=== PATIENT | male | born 1990 | race Caucasian/White ===

== ENCOUNTER 2018-04-23 09:55 | Inpatient (IN) | payer SELFPAY ==
[~2018-04-23] VITALS: Ht 193 cm; Wt 118.4 kg
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
--- OUTSIDE RECORDS SUMMARY | 2018-04-23 10:12 | XMS REPORT ---
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 [id number] ALLERGIES No Information ENCOUNTERS Encounter Location Date Diagnosis [facility] [address] [address] Sep, Positive QuantiFERON-TB Gold test R76.12 [facility] [address] [address] Aug, Cough R05 ; Acute maxillary sinusitis, recurrence not specified J01.00 and Impacted cerumen of both ears H61.23 [facility] [address] [address] Jul, Positive QuantiFERON-TB Gold test R76.12 [facility] [address] [address] Jul, Positive QuantiFERON-TB Gold test R76.12 [facility] [address] [address] June, [facility] [address] [address] May, Lumbar back pain M54.5 [facility] [address] [address] May, Positive QuantiFERON-TB Gold test R76.12 [facility] [address] [id number] May, Encounter for dental exam and cleaning w/o abnormal findings Z01.20 [facility] [address], [place] [address] Apr, Positive QuantiFERON-TB Gold test R76.12 [facility] [address], [place] [address] Apr, Positive QuantiFERON-TB Gold test R76.12 [facility] [address] [place] [address]- 8680 Feb, Positive QuantiFERON-TB Gold test R76.12 [facility] [address] [place] [address]- [address] Feb, [facility] [address] [place] [address] 8[address]- 1577 Feb, [facility] [address] [place] [address]- [address]56 Feb, Latent tuberculosis R76.11 [facility] [address], [place] [address] Feb, [facility] [address] [place] [address]94- 0900 Dec, Positive QuantiFERON-TB Gold test R76.12 [facility] [address], [place] [address] Dec, Positive QuantiFERON-TB Gold test R76.12 [facility] [address] [id number], [place] [address] Dec, Positive QuantiFERON-TB Gold test R76.12 [facility] [address], [place] [address] 18 Nov, 2016 Latent tuberculosis R76.11 and Acute midline low back pain without sciatica M54.5 [facility] [address] [place] [id number] Jan, Enlarged lymph node R59.9 [facility] [address] [id number] [place] [id number] Oct, Dental examination V72.2 [facility] [address] [facility] [id number], [place] [address] May, [facility] [address] [facility] [id number], [place] [address] May, [facility] [address] [place] [address] May, [facility] [address] [place] [id number] Feb, [facility] [address] [facility] [id number], [place] [address]- 1639 May, [facility] [address] [facility] [id number], [place] [address]- 8[address] May, [facility] [address] [facility] [id number], [place] [address]- [address] Dec, IMMUNIZATIONS No Known Immunizations SOCIAL HISTORY Never Assessed REASON FOR VISIT tb treatment- INH given for 30 day supply reminded pt to come back in 30 days, voiced uday Grider RN PLAN OF CARE VITAL SIGNS [...]
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
--- OUTSIDE RECORDS SUMMARY | 2018-04-23 10:13 | XMS REPORT ---
Author Author NEHEMIAS PIZARRO [facility] Address [address] [place] [address] Care Team Providers Care Burn Nurse Name Role Phone NEHEMIAS PIZARRO Unavailable PROBLEMS Type Condition ICD9-CM Code CTK95-HI Code Onset Dates Condition Status SNOMED Code Problem Ingrowing nail 703.0 Active 777237364 Problem Urinary tract infection, site not specified 599.0 Active 86263130 ALLERGIES Unknown Allergies SOCIAL HISTORY No smoking Hx information available PLAN OF CARE VITAL SIGNS Height 75 in 2016-01-27 Weight 227 lbs 2016-01-27 Heart Rate 80 bpm 2016-01-27 Respiratory Rate 16 2016-01-27 BMI 28.37 kg/m2 2016-01-27 Blood pressure systolic 118 mmHg 2016-01-27 Blood pressure diastolic 80 mmHg 2016-01-27 MEDICATIONS Medication Instructions Dosage Frequency Start Date End Date Duration Status Augmentin 875-125 MG Orally every 12 hrs 1 tablet 12h Jan,Jan 10 day(s) Active RESULTS No Results PROCEDURES Procedure Date Ordered Related Diagnosis Body Site Office Visit, Est Pt., Level 2 Jan 27, 2016 IMMUNIZATIONS No Known Immunizations
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
--- OUTSIDE RECORDS SUMMARY | 2018-04-23 10:13 | XMS REPORT | Continuity of Care Document ---
Demographics Preferred Language Unknown Marital Status Unknown Denominational Affiliation Unknown Race Unknown Ethnic Group Unknown Author Author [facility] Address Unknown Phone Unavailable Allergies Active Description Code Type Severity Reaction Onset Reported/Identified Relationship to Patient Clinical Status Yes No Known Drug Allergies [id number] Drug Allergy Unknown N/A 09/09/2012 Medications There is no data. Problems Date Dx Coded Attending Type Code Diagnosis Diagnosed By 12/16/2008 V70.4 EXAMINATION FOR MEDICOLEGAL REASONS 12/16/2008 V70.4 EXAMINATION FOR MEDICOLEGAL REASONS 05/21/2009 463 ACUTE TONSILLITIS 05/21/2009 463 ACUTE TONSILLITIS 02/28/2010 V74.5 visit for: screening exam bact/spirochetal venereal disease 02/28/2010 V74.5 visit for: screening exam bact/spirochetal venereal disease 03/07/2012 599.0 URINARY TRACT INFECTION 03/07/2012 599.0 URINARY TRACT INFECTION 05/09/2012 703.0 NAIL INGROWN 09/09/2012 FITO MILLER, JEFF [place] Ot 874.8 OPEN WOUND OF NECK NEC 09/09/2012 FITO MILLER, JEFF A Ot E000.8 OTHER EXTERNAL CAUSE STATUS 09/09/2012 IFTO MILLER, JEFF A Ot E849.[address]/HIGHWAY 09/09/2012 FITO MILLER, JEFF A Ot E920.8 ACC-CUTTING INSTRUM NEC 09/09/2012 FITO MILLER, JEFF A Ot V06.1 [id number], COMBINED [ Procedures There is no data. Results Test Result Range LIVER PANEL (LFT) - 12/17/16 09:36 PROTEIN, TOTAL 7.3 g/dL 6.1-8.1 ALBUMIN 4.9 g/dL 3.6-5.1 GLOBULIN 2.4 g/dL (calc) 1.9-3.7 ALBUMIN/GLOBULIN RATIO 2.0 (calc) 1.0-2.5 BILIRUBIN, TOTAL 0.7 mg/dL 0.2-1.2 ALKALINE PHOSPHATASE 81 U/L 40-115 AST 47 U/L 10-40 ALT 71 U/L 9-46 BILIRUBIN, DIRECT 0.1 mg/dL < OR=0.2 BILIRUBIN, INDIRECT 0.6 mg/dL (calc) 0.2-1.2 LIVER PANEL (LFT) - 04/14/17 17:27 PROTEIN, TOTAL 7.3 g/dL 6.1-8.1 ALBUMIN 4.9 g/dL 3.6-5.1 GLOBULIN 2.4 g/dL (calc) 1.9-3.7 ALBUMIN/GLOBULIN RATIO 2.0 (calc) 1.0-2.5 BILIRUBIN, TOTAL 0.5 mg/dL 0.2-1.2 ALKALINE PHOSPHATASE 76 U/L 40-115 AST 34 U/L 10-40 ALT 59 U/L 9-46 BILIRUBIN, DIRECT 0.1 mg/dL < OR=0.2 BILIRUBIN, INDIRECT 0.4 mg/dL (calc) 0.2-1.2 LIVER PANEL (LFT) - 08/03/17 10:45 PROTEIN, TOTAL 7.0 g/dL 6.1-8.1 ALBUMIN 4.6 g/dL 3.6-5.1 GLOBULIN 2.4 g/dL (calc) 1.9-3.7 ALBUMIN/GLOBULIN RATIO 1.9 (calc) 1.0-2.5 BILIRUBIN, TOTAL 0.6 mg/dL 0.2-1.2 ALKALINE PHOSPHATASE 64 U/L 40-115 AST 33 U/L 10-40 ALT 53 U/L 9-46 BILIRUBIN, DIRECT 0.1 mg/dL < OR=0.2 BILIRUBIN, INDIRECT 0.5 mg/dL (calc) 0.2-1.2 LIVER PANEL (LFT) - 01/04/18 16:08 PROTEIN, TOTAL 7.5 g/dL 6.1-8.1 ALBUMIN 5.1 g/dL 3.6-5.1 GLOBULIN 2.4 g/dL (calc) 1.9-3.7 ALBUMIN/GLOBULIN RATIO 2.1 (calc) 1.0-2.5 BILIRUBIN, TOTAL 0.6 mg/dL 0.2-1.2 ALKALINE PHOSPHATASE 71 U/L 40-115 AST 28 U/L 10-40 ALT 54 U/L 9-46 BILIRUBIN, DIRECT 0.1 mg/dL < OR=0.2 BILIRUBIN, INDIRECT 0.5 mg/dL (calc) 0.2-1.2 Encounters ACCT No. Visit Date/Time Discharge Status Pt. Type Provider Facility Loc./Unit Complaint [id number] 05/09/2012 09:29:00 05/09/2012 23:59:59 CLS Outpatient [id number] 03/07/2012 09:44:00 03/07/2012 23:59:59 CLS Outpatient [id number] 12/07/2014 14:48:00 12/07/2014 23:59:59 CLS Outpatient AMEE VANN [facility] QUICK [id number] 09/09/2012 04:27:00 09/09/2012 05:01:00 DIS Emergency JEFF PAYTON MD [facility] ER NECK LACERATION [id number] 01/25/2018 08:35:00 01/25/2018 23:59:59 CLS Outpatient NEIL AMADO [facility] [id number] 01/04/2018 15:40:00 Document Registration [id number] 08/03/2017 11:00:00 Document Registration [id number] 04/14/2017 17:20:00 Document Registration [id number] 12/17/2016 09:30:00 Document Registration
--- OUTSIDE RECORDS SUMMARY | 2018-04-23 10:13 | XMS REPORT ---
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 [id number] ALLERGIES No Information ENCOUNTERS Encounter Location Date Diagnosis [facility] [address] [address] Aug, Cough R05 ; Acute maxillary sinusitis, recurrence not specified J01.00 and Impacted cerumen of both ears H61.23 [facility] [address] [address] Jul, Positive QuantiFERON-TB Gold test R76.12 [facility] [address] [address] Jul, Positive QuantiFERON-TB Gold test R76.12 [facility] [address] [address] June, [facility] [address] [address] May, Lumbar back pain M54.5 [facility] [address] [address] May, Positive QuantiFERON-TB Gold test R76.12 [facility] [address] [id number] May, Encounter for dental exam and cleaning w/o abnormal findings Z01.20 [facility] [address] [address] Apr, Positive QuantiFERON-TB Gold test R76.12 [facility] [address] [address] Apr, Positive QuantiFERON-TB Gold test R76.12 [facility] [address] [facility] [id number] [address] Feb, Positive QuantiFERON-TB Gold test R76.12 [facility] [address] [place] [address] Feb, [facility] [address] [place] [place] [address] Feb, [facility] [address] [place] [place] [address] Feb, Latent tuberculosis R76.11 [facility] [address] [place] [place] [address] Feb, [facility] [address] [place] [address] Dec, Positive QuantiFERON-TB Gold test R76.12 [facility] [address] [place] [address] Dec, Positive QuantiFERON-TB Gold test R76.12 [facility] [address] [address] Dec, Positive QuantiFERON-TB Gold test R76.12 [facility] [address] [address] Nov, Latent tuberculosis R76.11 and Acute midline low back pain without sciatica M54.5 [facility] [address] [place] [id number] Jan, Enlarged lymph node R59.9 [facility] [address] [id number] 28 Oct, 2014 Dental examination V72.2 [facility] [address] [id number] [address] May, [facility] [address] [facility] [id number] [address] May, [facility] [address] [place] [id number] May, [facility] [address] [place] [id number] Feb, [facility] [id number] [address] May, [facility] [address] [facility] [id number] [address] May, [facility] [address] [id number] [address] Dec, IMMUNIZATIONS No Known Immunizations SOCIAL HISTORY Never Assessed REASON FOR VISIT LTBI Mediation PLAN OF CARE VITAL SIGNS MEDICATIONS Medication [...]
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
--- OUTSIDE RECORDS SUMMARY | 2018-04-23 10:13 | XMS REPORT ---
Author Author ENRIKE HINTON [employer] Address Unknown Phone Unavailable Care Team Providers Care Store Person Name Role Phone ENRIKE HINTON CP Unavailable Allergies, Adverse Reactions, Alerts Substance Reaction Event Type N.K.D.A. Info Not Available Non Drug Allergy Problems Problem Type Condition Code Onset Dates Condition Status Problem Urinary tract infection, site not specified 599.0 Active Assessment Dental examination V72.2 Active Problem Ingrowing nail 703.0 Active Medications No Known Medications Procedures Procedure Coding System Code Date INTRAORL-PERIAPICAL 1 FILM 51644 CPT-4 D0220 Nov 04, 2014 INTRAORL-PERIAPICAL EA ADD FILM CPT-4 D0230 Nov 04, 2014 COMP ORAL EVALUATION - NEW/EST PT CPT-4 D0150 Nov 04, 2014 BITEWINGS - FOUR FILMS CPT-4 D0274 Nov 04, 2014 INTRAORL-PERIAPICAL EA ADD FILM CPT-4 D0230 Nov 04, 2014 PANORAMIC FILM SEE ALSO CODE 00831 CPT-4 D0330 Nov 04, 2014 Vital Signs Date/Time: Nov 04, 2014 Blood Pressure Diastolic 67 mmHg Blood Pressure Systolic 116 mmHg Results No Known Results Summary Purpose [employer]ClinicalWorks Submission
--- OUTSIDE RECORDS SUMMARY | 2018-04-23 10:13 | XMS REPORT ---
Author Author NEIL AMADO Organization 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 [address] [address] Jul, Positive QuantiFERON-TB Gold test R76.12 [facility] [address] [address] Jul, Positive QuantiFERON-TB Gold test R76.12 [facility] [address] [address] June, [facility] [address] [address] May, Lumbar back pain M54.5 [facility] [address] [address] May, Positive QuantiFERON-TB Gold test R76.[address] [facility] [address] [id number] May, Encounter for dental exam and cleaning w/o abnormal findings Z01.20 [facility] [address] [address] Apr, Positive QuantiFERON-TB Gold test R76.12 [facility] [address], [place] [address] Apr, Positive QuantiFERON-TB Gold test R76.12 [facility] [address] [facility] [id number] [address] Feb, Positive QuantiFERON-TB Gold test R76.12 [facility] [address] [place] [address] Feb, [facility] [address] [place] [address] Feb, [facility] [address] [place] [address] Feb, Latent tuberculosis R76.11 [facility] [address] [place] [address] Feb, [facility] [address] [place] [address] Dec, Positive QuantiFERON-TB Gold test R76.12 [facility] [address] [place] [address] Dec, Positive QuantiFERON-TB Gold test R76.12 [facility] [address], [place] [address] Dec, Positive QuantiFERON-TB Gold test R76.12 [facility] [address], [place] [address] Nov, Latent tuberculosis R76.11 and Acute midline low back pain without sciatica M54.5 [facility] [address] [place], [place] [id number] Jan, Enlarged lymph node R59.[address] [facility] [address] [id number] 28 Oct, [address] [facility] [id number] [address] May, [facility] [address] [facility] [id number], [place] [address] May, [facility] [address] [place] [id number] May, [facility] [address] [place], [place] [phone] Feb, [facility] [address] [id number] [address] May, [facility] [address] [facility] [id number], [place] [address] May, [facility] [address] [id number] [address] Dec, IMMUNIZATIONS No Known Immunizations SOCIAL HISTORY Never Assessed REASON FOR VISIT LTBI Medications PLAN OF CARE VITAL SIGNS MEDICATIONS Medication [...]
--- OUTSIDE RECORDS SUMMARY | 2018-04-23 10:13 | XMS REPORT | Continuity of Care Document ---
Author Author [facility] Organization [facility] Address Unknown Phone Unavailable Care Team Providers Care Automotive Dismantler Name Role Phone NO, LOCAL PHYSICIAN PP Unavailable Insurance Providers Payer Name Policy Number Subscriber Name Relationship Self Pay Selene Ewing 01 Self / Same As Patient Advance Directives Directive Response Recorded Date Advance Directives N 09/09/12 4:29am Organ Donor N 09/09/12 4:29am Problems No Known Problems or Medical conditions. Social History History Response Recorded Date/Time Alcohol Use Occasionally Uses 09/09/12 4: 29am Recreational Drug Use N 09/09/12 4:29am Recent Foreign Travel N 09/09/12 4:29am Sexually Transmitted Disease N 09/09/12 4 :29am HIV/AIDS N 09/09/12 4:29am Allergies, Adverse Reactions, Alerts Allergen Type Severity Reaction Last Updated No Known Drug Allergies 09/09/12 Medications No known medications Immunizations Name Given Type DTaP 09/09/12 A DTaP 09/09/12 A Response Recorded Date/Time Status not known Unknown Results No Known Relevant Diagnostic Tests, Laboratory Data and/or Discharge Summary. Encounters Encounter Location Date/Time Departed Emergency Room [facility] 04/19 4:27am
[2018-04-23] MEDS ORDERED: NS IV 1000 ML 1,000 ML IV SCH (11:30)
[2018-04-23] MEDS ORDERED: fentaNYL INJECTION 100 MCG/2 ML AMP IVP ONE ×2 (11:30→12:30)
--- NOTE | 2018-04-23 11:42 | ED Upper Extremity ---
General Chief Complaint: Upper Extremity Stated Complaint: L ARM REDNESS/SWELLING/SOB Nursing Triage Note: pt presents ot er with complaint of left arm pain, swelling, and redness. states it has progressively worsened over the last few days. pt is soa. denies injury. Nursing Sepsis Screen: No Definite Risk Source: patient Exam Limitations: no limitations History of Present Illness Date Seen by Provider: Apr 23, 2018 Time Seen by Provider: 11:05 Initial Comments 27-year-old male who presents to the emergency room with complaints of left arm pain, swelling, redness 3 days. He denies injury to the arm. He reports the pain is so bad is causing him pain with inspiration. He has a small abrasion on the dorsal surface of his forearm that is healed over but this is the starting side of the redness. The arm is warm to the touch and he was found to be febrile on arrival to the emergency room. Onset: other (3 days) Pain/Injury Location: left arm, left forearm Method of Injury: unknown Modifying Factors: Worse With Movement Allergies and Home Medications Allergies Coded Allergies: No Known Drug Allergies (Unverified , 04/23/18) Home Medications No Active Prescriptions or Reported Meds Patient Home Medication List Home Medication List Reviewed: Yes Review of Systems Constitutional: see HPI, fever Respiratory: see HPI, short of breath Skin: see HPI, other (redness swelling pain to the left upper extremity.) All Other Systems Reviewed Negative Unless Noted: Yes Past Ggoctun-Nybuel-Kgeeou Hx Past Med/Social Hx: Reviewed Nursing Past Med/Soc Hx Patient Social History Alcohol Use: Denies Use Recreational Drug Use: No Smoking Status: Current Everyday Smoker Type Used: Cigarettes Recent Foreign Travel: No Contact w/Someone Who Travel: No Recent Infectious Disease Expo: No Recent Hopitalizations: No Immunizations Up To Date Tetanus Booster (TDap): More than 5yrs PED Vaccines UTD: Yes Seasonal Allergies Seasonal Allergies: No Past Medical History Surgeries: No Respiratory: Yes (dormant tb, took meds ) Tuberculosis Cardiac: No Neurological: No Reproductive Disorders: No Sexually Transmitted Disease: No HIV/AIDS: No Genitourinary: No Gastrointestinal: No Musculoskeletal: No Endocrine: No HEENT: No Cancer: No Psychosocial: No Integumentary: No Blood Disorders: No Family Medical History Reviewed Nursing Family Hx Physical Exam Vital Signs Vital Signs - First Documented 3/17/19 11:04 Temp 101.2 Pulse 118 Resp 20 B/P (MAP) 116/70 (85) Pulse Ox 99 O2 Delivery Room Air Capillary Refill : Less Than 3 Seconds Height, Weight, BMI Height: 6'3.00" Weight: 240lbs. oz. 108.249278ck; BMI Method:Stated General Appearance: WD/WN, no apparent distress HEENT: PERRL/EOMI Neck: non-tender, full range of motion, supple, normal inspection Cardiovascular: normal peripheral pulses, regular rate, rhythm, no edema, no gallop, no JVD, no murmur Respiratory: chest non-tender, lungs clear, normal breath sounds, no respiratory distress, no accessory muscle use Elbow/Forearm: Left, pain, soft tissue tenderness, swelling (and erythema see images for location) Neurologic/Tendon: normal sensation, normal motor functions, normal tendon functions, responds to pain, no evidence tendon injury Neurologic/Psychiatric: alert, normal mood/affect, oriented x 3 Skin: normal color, warm/dry Progress/Results/Core Measures Results/Orders Lab Results Laboratory Tests Test 04/23/18 11:50 04/23/18 14:19 Range/Units White Blood Count 20.2 H 4.3-11.0 10^3/uL Red Blood Count 5.12 4.35-5.85 10^6/uL Hemoglobin 15.4 13.3-17.7 G/DL Hematocrit 45 40-54 % Mean Corpuscular Volume 88 80-99 FL Mean Corpuscular Hemoglobin 30 25-34 PG Mean Corpuscular Hemoglobin Concent 34 32-36 G/DL Red Cell Distribution Width 12.8 10.0-14.5 % Platelet Count 204 130-400 10^3/uL Mean Platelet Volume 10.6 H 7.4-10.4 FL Neutrophils (%) (Auto) 80 H 42-75 % Lymphocytes (%) (Auto) 11 L 12-44 % Monocytes (%) (Auto) 10 0-12 % Eosinophils (%) (Auto) 0 0-10 % Basophils (%) (Auto) 0 0-10 % Neutrophils # (Auto) 16.1 H 1.8-7.8 X 10^3 Lymphocytes # (Auto) 2.2 1.0-4.0 X 10^3 Monocytes # (Auto) 1.9 H 0.0-1.0 X 10^3 Eosinophils # (Auto) 0.0 0.0-0.3 10^3/uL Basophils # (Auto) 0.0 0.0-0.1 10^3/uL Neutrophils % (Manual) 84 % Lymphocytes % (Manual) 9 % Monocytes % (Manual) 4 % Eosinophils % (Manual) 0 % Basophils % (Manual) 0 % Band Neutrophils 3 % Blood Morphology Comment NORMAL Prothrombin Time 14.0 12.2-14.7 SEC INR Comment 1.1 0.8-1.4 Activated Partial Thromboplast Time 36 H 24-35 SEC D-Dimer 1.18 H 0.00-0.49 UG/ML Sodium Level 129 L 135-145 MMOL/L Potassium Level 3.8 3.6-5.0 MMOL/L Chloride Level 96 L 98-107 MMOL/L Carbon Dioxide Level 21 21-32 MMOL/L Anion Gap 12 5-14 MMOL/L Blood Urea Nitrogen 12 7-18 MG/DL Creatinine 1.09 0.60-1.30 MG/DL Estimat Glomerular Filtration Rate > 60 BUN/Creatinine Ratio 11 Glucose Level 131 H 70-105 MG/DL Lactic Acid Level 2.05 *H 1.39 0.50-2.00 MMOL/L Calcium Level 9.6 8.5-10.1 MG/DL Corrected Calcium 9.8 8.5-10.1 MG/DL Total Bilirubin 0.7 0.1-1.0 MG/DL Aspartate Amino Transf (AST/SGOT) 40 H 5-34 U/L Alanine Aminotransferase (ALT/SGPT) 32 0-55 U/L Alkaline Phosphatase 94 40-136 U/L Total Protein 7.1 6.4-8.2 GM/DL Albumin 3.7 3.2-4.5 GM/DL My Orders Orders - RUSS LYNCH Cbc With Automated Diff (04/23/18 11:08) Comprehensive Metabolic Panel (04/23/18 11:08) Blood Culture (04/23/18 11:08) Protime With Inr (04/23/18 11:08) Partial Thromboplastin Time (04/23/18 11:08) Chest 1 View, Ap/Pa Only (04/23/18 11:08) Saline Lock/Iv-Start (04/23/18 11:08) Saline Lock/Iv-Start (04/23/18 11:08) Vital Signs Adult Sepsis Patie Q15M (04/23/18 11:08) O2 (04/23/18 11:08) Remove Rings In Anticipation O (04/23/18 11:08) Wound Culture (04/23/18 11:08) Lactic Acid Analyzer (04/23/18 11:08) Fibrin Degradation Products (04/23/18 11:18) Us Venous Upper Ext Lt (04/23/18 11:18) Fentanyl Injection (Sublimaze Injection (04/23/18 11:30) Ns Iv 1000 Ml (Sodium Chloride 0.9%) (04/23/18 11:30) Manual Differential (04/23/18 11:50) Fentanyl Injection (Sublimaze Injection (04/23/18 12:30) Ct Angio Chest W (04/23/18 13:12) Iohexol Injection (Omnipaque 350 Mg/Ml 1 (04/23/18 13:30) Received Contrast (Contrast Received) (04/23/18 13:30) Sodium Chloride Flush (Catheter Flush Sy (04/23/18 13:30) Ns (Ivpb) (Sodium Chloride 0.9% Ivpb Bag (04/23/18 13:30) Medications Given in ED Vital Signs/I&O 04/23/18 04/23/18 04/23/18 04/23/18 15:15 15:20 15:33 15:39 Temp 101.2 97.1 97.1 Pulse 102 87 87 Resp 20 16 16 B/P (MAP) 121/85 (97) 111/62 111/62 (78) Pulse Ox 99 99 99 99 O2 Delivery Room Air Room Air Room Air Room Air 04/23/18 04/23/18 04/23/18 04/24/18 19:00 20:00 20:00 00:20 Temp 99.1 98.6 Pulse 94 92 88 Resp 20 18 B/P (MAP) 116/73 (87) 111/63 (79) Pulse Ox 98 98 96 O2 Delivery Room Air Room Air Room Air 04/24/18 01:00 Pulse 70 Blood Pressure Mean: 85 Progress Progress Note : Time: 14:46 Progress Note I have seen and evaluated the patient. I have discussed the case findings with Dr. Naylor at this time. She agrees with making the patient to the hospital for IV antibiotics for cellulitis of the upper extremity. She recommends the use of vancomycin and Zosyn for antibiotic coverage. The patient agrees with plan of care. Departure Communication (Admissions) Time/Spoke to Admitting Phy: 14:46 Dr. Naylor Impression Primary Impression: Cellulitis of left upper extremity Disposition: ADMITTED INPATIENT Condition: Stable/Unchanged Admissions Decision to Admit Reason: Admit from ER (General) Decision to Admit/Date: Apr 23, 2018 Time/Decision to Admit Time: 15:00 Departure-Patient Inst. Referrals: NO,LOCAL PHYSICIAN (PCP/Family) Primary Care Physician Scripts No Active Prescriptions or Reported Meds Images Extremities-Upper 1 - Cellulitis, Swelling, Tenderness, Other-See Progress Note Progress Erythema RUSS LYNCH Apr 23, 2018 11:42
[2018-04-23 12:04] LABS: BASOPHILS % (AUTO) 0 % (0-10); EOSINOPHILS % (AUTO) 0 % (0-10); HEMATOCRIT 45 % (40-54); HEMOGLOBIN 15.4 G/DL (13.3-17.7); LYMPHOCYTES # (AUTO) 2.2 X 10^3 (1.0-4.0); LYMPHOCYTES % (AUTO) 11 % (12-44); MEAN CORPUSCULAR HEMOGLOBIN 30 PG (25-34); MEAN CORPUSCULAR HGB CONC 34 G/DL (32-36); MEAN CORPUSCULAR VOLUME 88 FL (80-99); MEAN PLATELET VOLUME 10.6 FL (7.4-10.4); MONOCYTES # (AUTO) 1.9 X 10^3 (0.0-1.0); MONOCYTES % (AUTO) 10 % (0-12); NEUTROPHILS # (AUTO) 16.1 X 10^3 (1.8-7.8); NEUTROPHILS % (AUTO) 80 % (42-75); PLATELET COUNT 204 10^3/uL (130-400); RED CELL DISTRIBUTION WIDTH 12.8 % (10.0-14.5); WHITE BLOOD COUNT 20.2 10^3/uL (4.3-11.0)
[2018-04-23 12:24] LABS: ALANINE AMINOTRANSFERASE 32 U/L (0-55); ALBUMIN 3.7 GM/DL (3.2-4.5); ALKALINE PHOSPHATASE 94 U/L (40-136); BILIRUBIN,TOTAL 0.7 MG/DL (0.1-1.0); BUN/CREATININE RATIO 11; CALCIUM 9.6 MG/DL (8.5-10.1); CARBON DIOXIDE 21 MMOL/L (21-32); CHLORIDE 96 MMOL/L (98-107); CREATININE SERUM 1.09 MG/DL (0.60-1.30); GFR ESTIMATED > 60; GLUCOSE 131 MG/DL (70-105); POTASSIUM 3.8 MMOL/L (3.6-5.0); SODIUM 129 MMOL/L (135-145); TOTAL PROTEIN 7.1 GM/DL (6.4-8.2)
--- NOTE | 2018-04-23 12:41 | Diagnostic Imaging Report ---
EXAM: CHEST 1 VIEW, AP/PA ONLY INDICATION: Left upper extremity redness and swelling. COMPARISON: None. FINDINGS: Normal heart size and central pulmonary vascularity. No focal pulmonary opacity, pleural effusion or pneumothorax. No acute osseous findings. IMPRESSION: Negative chest. Dictated by: Dictated on workstation # [id number]
--- NOTE | 2018-04-23 12:42 | Diagnostic Imaging Report ---
PROCEDURE: US venous upper extremity left. TECHNIQUE: Multiple realtime grayscale images were obtained of left upper extremity in various projections. Additional spectral analysis and color Doppler duplex images were also obtained. INDICATION: Arm pain and swelling. There are no prior studies available for comparison. There is generally good blood flow and compressibility throughout the deep venous system of the left upper extremity. The deep venous system was visualized from the internal jugular vein to the radial ulnar veins. There is no sign of a deep venous thrombosis. IMPRESSION: There is no evidence for deep venous thrombosis of the left upper extremity. Dictated by: Dictated on workstation # [id number]
[2018-04-23 12:44] LABS: FIBRIN DEGRADATION PRODUCTS 1.18 UG/ML (0.00-0.49); INR 1.1 (0.8-1.4)
[2018-04-23 13:01] LABS: BAND NEUTROPHILS 3 %; BASOPHILS % (MANUAL) 0 %; EOSINOPHILS % (MANUAL) 0 %; LYMPHOCYTES % (MANUAL) 9 %; MONOCYTES % (MANUAL) 4 %; NEUTROPHILS % (MANUAL) 84 %; RBC MORPH NORMAL
[2018-04-23] MEDS ORDERED: IOHEXOL 350 MG/ML 150 ML (OMNIPAQUE 350) VIAL IV ONE (13:30)
[2018-04-23] MEDS ORDERED: NS 100 ML (IVPB) BAG IV ONE (13:30)
[2018-04-23] MEDS ORDERED: CATHETER FLUSH 10 ML SYR IV PRN (13:30)
[2018-04-23] MEDS ORDERED: HOLD METFORMIN - RECEIVED CONTRAST 20 ML VIAL IV SCH (13:30)
--- NOTE | 2018-04-23 14:21 | Diagnostic Imaging Report ---
PROCEDURE: CT angiography of the chest with contrast. TECHNIQUE: Multiple contiguous axial images were obtained through the chest after uneventful bolus administration of intravenous contrast. 2D reconstructed CTA MIP acquisitions were also performed. INDICATION: Left upper arm redness and swelling. COMPARISON: Chest radiograph 04/23/2018. Ultrasound left upper extremity venous Doppler 04/23/2018. FINDINGS: No thoracic aortic aneurysm or dissection. The great arch vessels are widely patent within the [id number]. The pulmonary arteries are poorly opacified. No large or central pulmonary emboli. Normal heart size. No pericardial effusion. Lungs are clear. No pleural effusion or pneumothorax. No endobronchial lesions. Benign fat-containing adrenal nodule on the right measuring up to 2.5 cm. The visualized upper abdominal contents are otherwise unremarkable. Osseous structures are intact. IMPRESSION: 1. Negative CTA of the chest. 2. Benign right adrenal nodule measuring up to 2.5 cm. Dictated by: Dictated on workstation # [id number]
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
[2018-04-23 15:33] VITALS: BP 111/62
[2018-04-23 15:39] VITALS: BP 111/62
[2018-04-23] MEDS ORDERED: VANCOMYCIN 2000 MG/NS 500 ML IVPB IV NR ×2 (15:39)
[2018-04-23] MEDS: NS IV 1000 ML 1,000 ML IV SCH (15:42)
[2018-04-23] MEDS ORDERED: ACETAMINOPHEN 325 MG TABLET PO PRN (15:45)
[2018-04-23] MEDS ORDERED: PIPERACILLIN/TAZO 4.5 GM/NS 100 ML IV NR ×2 (16:00)
--- NOTE | 2018-04-23 16:00 | NUR ---
SELENE KABA admitted to room 420-1, with an admitting diagnosis of CELLULITIS OF LUE, on 04/23/18 from ER via W/C, accompanied by S.O AND MOTHER, AND ER STAFF.SELENE KABA introduced to surroundings, call light, bed controls, phone, TV, temperature control, lights, meal times, smoking policy, visitor policy, side rail policy, bathrooms and showers. Patient Rights given to patient in the handbook. SELENE KABA verbalizes understanding that [facility] is not responsible for the loss or damage to any personal effects or valuables that are kept in the patients posession during their hospitalization. The following Patient Care Plans were discussed with the PT: Discharge Planning, PAIN, IMP MOBILITY, AND HIGH RISK INFECTION. SELENE KABA verbalizes understanding of Interdisciplinary Patient Education. Patient and/or family were informed about the Rapid Response Team and its purpose. CAME TO FLOOR WITH IV IN -- NOTE PT DENIED DRUG USE BUT PER REPORT FROM SURVEY MANAGER HE WAS IN RESIDENTIAL FOR USING DRUGS
[2018-04-23] MEDS ORDERED: FLU QUADRIvalent (5+ YOA) 2018-2019 (AFLURIA) 0.5 ML IM ONE (16:30)
[2018-04-23] MEDS ORDERED: diphenhydrAMINE 25 MG TAB (BENADRYL) PO ONE (17:24)
[2018-04-23] MEDS: diphenhydrAMINE 25 MG TAB (BENADRYL) PO PRN (17:29)
--- NOTE | 2018-04-23 17:31 | NUR ---
NOTE THAT AFTER PT BACK TO FLOOR THIS RN STARTED THE IV VANCO -- AT 1720 PT ADVISED THIS RN THAT HIS R ARM -- THAT IV IN WAS ITCHING -- -- NOTE PT HAS ENTIRE BLACK TATTO ON ARM UNABLE TO SEE RASH -- IVFS WERE STOPPED AND DR JAIME WAS CALLED SHE ORDERED PO BENDARYL 25MG TAB PO -- AND TO STOP THE IV VANCO -- SHE WAS ON HER COMPUTER PUTTING ORDERS IN -- RECRUITMENT INTERNSHIP ELENA IS AWARE
--- NOTE | 2018-04-23 18:10 | NUR ---
PT VOICED THAT THE R HAND WAS NOT ITCHING ANYMORE -- NS CONTINUES TO INFUSE AT 50 ML/HR
[2018-04-23 20:00] VITALS: BP 116/73
[2018-04-23] MEDS: fentaNYL INJECTION 100 MCG/2 ML AMP IVP PRN (20:06)
[2018-04-23] MEDS: PIPERACILLIN/TAZO 4.5 GM/NS 100 ML IV SCH ×2 (22:25)
[2018-04-24] MEDS ORDERED: VANCOMYCIN 1,750 MG/NS 500 ML IVPB IV SCH ×2
[2018-04-24 00:20] VITALS: BP 111/63
[2018-04-24 04:20] VITALS: BP 125/63
[2018-04-24] MEDS: fentaNYL INJECTION 100 MCG/2 ML AMP IVP PRN ×4 (04:35→21:00)
[2018-04-24] MEDS: PIPERACILLIN/TAZO 4.5 GM/NS 100 ML IV SCH ×6 (05:17→21:01)
[2018-04-24 07:00] LABS: BASOPHILS % (AUTO) 0 % (0-10); EOSINOPHILS # (AUTO) 0.1 10^3/uL (0.0-0.3); EOSINOPHILS % (AUTO) 0 % (0-10); HEMATOCRIT 42 % (40-54); HEMOGLOBIN 14.5 G/DL (13.3-17.7); LYMPHOCYTES # (AUTO) 2.3 X 10^3 (1.0-4.0); LYMPHOCYTES % (AUTO) 16 % (12-44); MEAN CORPUSCULAR HEMOGLOBIN 31 PG (25-34); MEAN CORPUSCULAR HGB CONC 34 G/DL (32-36); MEAN CORPUSCULAR VOLUME 89 FL (80-99); MEAN PLATELET VOLUME 10.8 FL (7.4-10.4); MONOCYTES # (AUTO) 1.4 X 10^3 (0.0-1.0); MONOCYTES % (AUTO) 9 % (0-12); NEUTROPHILS # (AUTO) 10.8 X 10^3 (1.8-7.8); NEUTROPHILS % (AUTO) 75 % (42-75); PLATELET COUNT 218 10^3/uL (130-400); RED CELL DISTRIBUTION WIDTH 13.3 % (10.0-14.5); WHITE BLOOD COUNT 14.5 10^3/uL (4.3-11.0)
[2018-04-24 07:22] LABS: ALANINE AMINOTRANSFERASE 46 U/L (0-55); ALBUMIN 3.3 GM/DL (3.2-4.5); ALKALINE PHOSPHATASE 100 U/L (40-136); BILIRUBIN,TOTAL 0.5 MG/DL (0.1-1.0); BUN/CREATININE RATIO 11; CALCIUM 9.2 MG/DL (8.5-10.1); CARBON DIOXIDE 21 MMOL/L (21-32); CHLORIDE 104 MMOL/L (98-107); CREATININE SERUM 0.96 MG/DL (0.60-1.30); GFR ESTIMATED > 60; GLUCOSE 109 MG/DL (70-105); POTASSIUM 3.8 MMOL/L (3.6-5.0); SODIUM 137 MMOL/L (135-145); TOTAL PROTEIN 6.5 GM/DL (6.4-8.2)
[2018-04-24] MEDS ORDERED: 1/2 NS IV SOLUTION 1,000 ML IV ONE (09:06)
[2018-04-24] MEDS: NS IV 1000 ML 1,000 ML IV SCH ×2 (11:45→13:39)
[2018-04-24 12:00] VITALS: BP 141/68
[2018-04-24] MEDS ORDERED: TROUGH ORDER-PHARMACY XX NR (15:00)
--- NOTE | 2018-04-24 15:04 | History & Physical-Hospitalist ---
History of Present Illness HPI/Chief Complaint The patient is a 27-year-old white male who presented to the emergency room yesterday with complaints of pain and redness in his left upper arm. He reported that this had begun on the day prior. He denies any previous history of cellulitis. He has noted a vertically oriented scrape on his left arm about mid ulnar. There are also a couple of eschars on the knuckles of both hands. He believes that the arm is less tender and less red than yesterday. Date Seen 04/24/18 Time Seen by a Provider: 15:04 Attending Physician Krystal Naylor MD PCP No,Local Physician Referring Physician Date of Admission Apr 23, 2018 at 14:27 Home Medications & Allergies Home Medications Reviewed patient Home Medication Reconciliation performed by pharmacy medication reconciliations residential gas heat technician and/or nursing. Patients Allergies have been reviewed. Allergies Allergies Coded Allergies No Known Drug Allergies (Unverified04/23/18) Past Iuotwjb-Vyrkmq-Roctky Hx Past Med/Social Hx: Reviewed Nursing Past Med/Soc Hx Patient Social History Alcohol Use: Occasionally Uses Alcohol Beverage of Choice: Beer Recreational Drug Use: No Smoking Status: Current Everyday Smoker Type Used: Cigarettes Physical Abuse Screen: No Sexual Abuse: No Recent Foreign Travel: No Contact w/other who traveled: No Recent Hopitalizations: No Recent Infectious Disease Expo: No Immunizations Up To Date Tetanus Booster (TDap): More than 5yrs Pediatric: Yes Seasonal Allergies Seasonal Allergies: No Past Medical History Reproductive: No Sexually Transmitted Disease: No HIV/AIDS: No History of Blood Disorders: No Family History Reviewed Nursing Family Hx Review of Systems Constitutional: see HPI EENTM: no symptoms reported Respiratory: no symptoms reported Cardiovascular: no symptoms reported Gastrointestinal: no symptoms reported Musculoskeletal: no symptoms reported Skin: see HPI, change in color Psychiatric/Neurological: No Symptoms Reported Physical Exam Physical Exam Vital Signs Vital Signs - First Documented 04/23/18 11:04 Temp 101.2 Pulse 118 Resp 20 B/P (MAP) 116/70 (85) Pulse Ox 99 O2 Delivery Room Air Capillary Refill : Less Than 3 Seconds Height, Weight, BMI Height: 6'4.00" Weight: 261lbs. 0.0oz. 118.306124yf; 31.8 BMI Method:Stated General Appearance: Mild Distress Eyes: Bilateral Eye Normal Inspection HEENT: Normal ENT Inspection Neck: Normal Inspection Respiratory: Chest Non Tender, Lungs Clear, Normal Breath Sounds, No Accessory Muscle Use, No Respiratory Distress Cardiovascular: Regular Rate, Rhythm, No Edema, No Gallop, No JVD, No Murmur, Normal Peripheral Pulses Gastrointestinal: Normal Bowel Sounds Back: Normal Inspection Neurologic/Psychiatric: Alert, Oriented x3, No Motor/Sensory Deficits, Normal Mood/Affect Comments There is erythema about the left arm. Begins at about the mid forearm and extends up to just below the deltoid. The greatest erythema is in the upper arm. It is somewhat tender to palpation. It is firm but not tight. There is a 2.5 cm vertically oriented superficial laceration at the mid ulna level. Results Results/Procedures Labs Laboratory Tests 04/23/18 11:50 04/24/18 06:05 Patient resulted labs reviewed. Assessment/Plan Admission Diagnosis Cellulitis Admission Status: Inpatient Order (span 2 midnights) Reason for Inpatient Admission: Degree of erythema and will take greater than 2 days of IV antibiotics Assessment and Plan IV antibiotics Clinical Quality Measures DVT/VTE Risk/Contraindication: Risk Factor Score Per Nursin RFS Level Per Nursing on Admit: 1=Low/No VTE PPX SMITA DOMINIQUE MD Apr 24, 2018 15:04
[2018-04-24] MEDS ORDERED: VANCOMYCIN INJECTION 0.1 MG in NS (IVPB) 250 ML IV SCH (15:15)
[2018-04-24 15:45] VITALS: BP 120/66
[2018-04-24] MEDS ORDERED: VANCOMYCIN 2000 MG/NS 500 ML IVPB IV NR ×2 (15:45)
[2018-04-24] MEDS: diphenhydrAMINE 25 MG TAB (BENADRYL) PO PRN (16:17)
[2018-04-24 20:15] VITALS: BP 133/80
[2018-04-24 23:31] VITALS: BP 125/62
[2018-04-25] MEDS: VANCOMYCIN 1,750 MG/NS 500 ML IVPB IV SCH ×8 (01:12→20:02)
[2018-04-25] MEDS: diphenhydrAMINE 25 MG TAB (BENADRYL) PO PRN ×3 (01:15→20:02)
[2018-04-25] MEDS: fentaNYL INJECTION 100 MCG/2 ML AMP IVP PRN ×5 (01:24→20:02)
[2018-04-25 04:50] VITALS: BP 130/68
[2018-04-25] MEDS: PIPERACILLIN/TAZO 4.5 GM/NS 100 ML IV SCH ×6 (05:26→21:21)
[2018-04-25 06:36] LABS: BASOPHILS % (AUTO) 0 % (0-10); EOSINOPHILS # (AUTO) 0.2 10^3/uL (0.0-0.3); EOSINOPHILS % (AUTO) 2 % (0-10); HEMATOCRIT 43 % (40-54); HEMOGLOBIN 14.3 G/DL (13.3-17.7); LYMPHOCYTES # (AUTO) 2.3 X 10^3 (1.0-4.0); LYMPHOCYTES % (AUTO) 23 % (12-44); MEAN CORPUSCULAR HEMOGLOBIN 30 PG (25-34); MEAN CORPUSCULAR HGB CONC 33 G/DL (32-36); MEAN CORPUSCULAR VOLUME 90 FL (80-99); MEAN PLATELET VOLUME 10.5 FL (7.4-10.4); MONOCYTES # (AUTO) 0.7 X 10^3 (0.0-1.0); MONOCYTES % (AUTO) 7 % (0-12); NEUTROPHILS # (AUTO) 6.9 X 10^3 (1.8-7.8); NEUTROPHILS % (AUTO) 68 % (42-75); PLATELET COUNT 227 10^3/uL (130-400); RED CELL DISTRIBUTION WIDTH 13.4 % (10.0-14.5); WHITE BLOOD COUNT 10.1 10^3/uL (4.3-11.0)
[2018-04-25 07:02] LABS: ALANINE AMINOTRANSFERASE 86 U/L (0-55); ALBUMIN 3.3 GM/DL (3.2-4.5); ALKALINE PHOSPHATASE 90 U/L (40-136); BILIRUBIN,TOTAL 0.3 MG/DL (0.1-1.0); BUN/CREATININE RATIO 9; CALCIUM 9.4 MG/DL (8.5-10.1); CARBON DIOXIDE 21 MMOL/L (21-32); CHLORIDE 108 MMOL/L (98-107); GFR ESTIMATED > 60; GLUCOSE 118 MG/DL (70-105); POTASSIUM 3.9 MMOL/L (3.6-5.0); SODIUM 136 MMOL/L (135-145); TOTAL PROTEIN 6.4 GM/DL (6.4-8.2)
[2018-04-25 08:00] VITALS: BP 123/71
[2018-04-25 12:00] VITALS: BP 133/82
--- NOTE | 2018-04-25 12:36 | Progress Note-Hospitalist ---
Progress Note Progress Notes/Assess & Plan Date Seen 04/25/18 Time Seen by Provider: 12:34 Assessment & Plan The patient reports the arm is feeling better and less swollen. He is afebrile and his white count has returned to normal. Physical exam shows the arm to have a receding erythema from both the upper and lower poles. Much of the area has now taken on a dull reddish brown color. There is a palpable area of fluctuance measuring about 5 cm in diameter just above the antecubital fossa. Impression: Cellulitis/possible abscess formation. Plan: Continue present antibiotics. Consult Dr. Lao for possible I&D. Focused Exam Lactate Level 04/23/18 11:50: Lactic Acid Level 2.05*H 04/23/18 14:19: Lactic Acid Level 1.39 SMITA DOMINIQUE MD Apr 25, 2018 12:36
--- NOTE | 2018-04-25 13:23 | Consultation ---
History of Present Illness History of Present Illness Patient Consulted On(yifan/time) 04/25/18 13:23 Date Seen by Provider: Apr 25, 2018 Time Seen by Provider: 13:23 History of Present Illness consult requested by dr abernathy for cellulitis/abscess left arm. patient is a 27 year old male admitted with cellulitis of left upper extremity. had issues the last 5 days. significant pain to the left arm. movement worse and particularly of a raised area proximal to the antecubital fossa. Patient states it has improved overall since being in the hospital. he has had some fever with it. he denies any trauma to the area. Patient had u /s that i saw that demonstrates some edema in the subcutaneous tissues no discreet abscess. Allergies and Home Medications Allergies Coded Allergies: No Known Drug Allergies (Unverified , 04/23/18) Home Medications No Active Prescriptions or Reported Meds Patient Home Medication List Home Medication List Reviewed: Yes Past Pbbclva-Euxpua-Djebcy Hx Patient Social History Alcohol Use: Occasionally Uses Recreational Drug Use: No Smoking Status: Current Everyday Smoker Type Used: Cigarettes Recent Foreign Travel: No Contact w/Someone Who Travel: No Recent Infectious Disease Expo: No Recent Hopitalizations: No Physical Abuse Screen: No Sexual Abuse: No Immunizations Up To Date Tetanus Booster (TDap): More than 5yrs PED Vaccines UTD: Yes Seasonal Allergies Seasonal Allergies: No Surgeries History of Surgeries: No Respiratory History of Respiratory Disorde: Yes (dormant tb, took meds ) Respiratory Disorders: Tuberculosis Cardiovascular History of Cardiac Disorders: No Neurological History of Neurological Disord: No Reproductive System Hx Reproductive Disorders: No Sexually Transmitted Disease: No HIV/AIDS: No Genitourinary History of Genitourinary Disor: No Gastrointestinal History of Gastrointestinal Di: No Musculoskeletal History of Musculoskeletal Dis: No Endocrine History of Endocrine Disorders: No HEENT History of HEENT Disorders: No Cancer History of Cancer: No Psychosocial History of Psychiatric Problem: No Integumentary History of Skin or Integumenta: No Blood Transfusions History of Blood Disorders: No Family Medical History Significant Family History: No Pertinent Family Hx Review of Systems-General Constitutional: see HPI, fever EENTM: no symptoms reported Respiratory: no symptoms reported Cardiovascular: no symptoms reported Gastrointestinal: no symptoms reported Genitourinary: no symptoms reported Musculoskeletal: see HPI Skin: change in color Psychiatric/Neurological: No Symptoms Reported Physical Exam-General Problems Physical Exam Vital Signs Vital Signs - First Documented 04/23/18 11:04 Temp 101.2 Pulse 118 Resp 20 B/P (MAP) 116/70 (85) Pulse Ox 99 O2 Delivery Room Air Capillary Refill : Less Than 3 Seconds General Appearance: no apparent distress HEENT: PERRL/EOMI, normal ENT inspection Neck: non-tender, full range of motion, supple, normal inspection Respiratory: chest non-tender, no respiratory distress, no accessory muscle use Cardiovascular: regular rate, rhythm Gastrointestinal: non tender, soft, no organomegaly Back: no CVA tenderness Extremities: other (left upper extremity with cellulitis area of fluctuance) Neurologic/Psychiatric: photographic plate maker II-XII nml as tested, no motor/sensory deficits, alert, normal mood/affect, oriented x 3 Skin: other (erythema as noted above left upper extremity) Lymphatic: no adenopathy Data Review Labs Laboratory Tests 04/24/18 15:12: Vancomycin Level Trough < 0.4L 04/25/18 06:23: White Blood Count 10.1, Red Blood Count 4.78, Hemoglobin 14.3, Hematocrit 43, Mean Corpuscular Volume 90, Mean Corpuscular Hemoglobin 30, Mean Corpuscular Hemoglobin Concent 33, Red Cell Distribution Width 13.4, Platelet Count 227, Mean Platelet Volume 10.5H, Neutrophils (%) (Auto) 68, Lymphocytes (%) (Auto) 23 , Monocytes (%) (Auto) 7, Eosinophils (%) (Auto) 2, Basophils (%) (Auto) 0, Neutrophils # (Auto) 6.9, Lymphocytes # (Auto) 2.3, Monocytes # (Auto) 0.7, Eosinophils # (Auto) 0.2, Basophils # (Auto) 0.0, Sodium Level 136, Potassium Level 3.9, Chloride Level 108H, Carbon Dioxide Level 21, Anion Gap 7, Blood Urea Nitrogen 8, Creatinine 0.90, Estimat Glomerular Filtration Rate > 60, BUN/ Creatinine Ratio 9, Glucose Level 118H, Calcium Level 9.4, Corrected Calcium 10.0, Total Bilirubin 0.3, Aspartate Amino Transf (AST/SGOT) 69H, Alanine Aminotransferase (ALT/SGPT) 86H, Alkaline Phosphatase 90, Total Protein 6.4, Albumin 3.3 Microbiology 04/23/18 Blood Culture - Preliminary, Resulted No growth Assessment/Plan Assessment/Plan Assessment/Plan cellulitis/abscess left upper extremity. u/s reviewed no specific abscess visualized by ultrasound but by physical exam suspect thin layered abscess not able to be visualized and with edema visualized by u/s we discussed risks and benefits of icision and drainage and patient wishes to proceed consent signed i and d performed getting purulent material and culture obtained continue medical management packing daily Clinical Quality Measures DVT/VTE Risk/Contraindication: Risk Factor Score Per Nursin RFS Level Per Nursing on Admit: 1=Low/No VTE PPX SHARON VEE DO Apr 25, 2018 13:23
[2018-04-25] MEDS ORDERED: LIDOCAINE 1% INJ 20 ML 20 ML VIAL ONE (14:27)
--- NOTE | 2018-04-25 14:34 | Diagnostic Imaging Report ---
INDICATION: Cellulitis of left arm. FINDINGS: Sonographic interrogation of the area of swelling and left bicep region was performed. There is some heterogeneous tissue present but no discrete fluid collection or mass is identified. IMPRESSION: Mild parenchymal heterogeneity and edema. No discrete fluid collection is detected. Dictated by: Dictated on workstation # [id number]
[2018-04-25] MEDS ORDERED: TROUGH ORDER-PHARMACY XX NR ×2 (15:00→19:00)
[2018-04-25] MEDS: HYDROcodone/APAP 5 MG/325 MG (LORTAB) TAB PO PRN (15:37)
--- NOTE | 2018-04-25 15:46 | NUR ---
1515 DR VEE IN ROOM TO DO INCISION AND DRAINAGE OF LEFT ARM ABSCESS. 1530 VERBAL ORDERS RECEIVED FOR VICODIN 5/325MG 1-2 TABS PO EVERY 6 HOURS PRN PAIN. 1540 FENTANYL 50MCQ GIVEN EARLY FOR POST I & D PAIN, PT RATES PAIN AT 10 ON 0-10 SCALE. NEW PRESSURE DRESSING APPLIED BY THIS RN.
[2018-04-25 16:00] VITALS: BP 128/71
--- NOTE | 2018-04-25 16:06 | NUR ---
VANCOMYCIN TROUGH = 24.6. TROUGH ORDERED FOR 19:00 04/25/18. IF TROUGH LESS THAN 20 WILL START VANCOMYCIN 1,750 MG IV Q 12 HRS @ 20:00.
[2018-04-25 23:34] VITALS: BP 120/69
[2018-04-26] MEDS: HYDROcodone/APAP 5 MG/325 MG (LORTAB) TAB PO PRN ×3 (00:30→20:03)
--- NOTE | 2018-04-26 02:31 | OPERATIVE REPORT ---
DATE OF SERVICE: 04/25/2018 PREOPERATIVE DIAGNOSIS: Left arm abscess. POSTOPERATIVE DIAGNOSIS: Left arm abscess. PROCEDURE: Incision and drainage, left arm abscess. SURGEON: Sharon Lao DO. ANESTHESIA: 1% lidocaine, 5 mL. ESTIMATED BLOOD LOSS: Minimal. COMPLICATIONS: None. INDICATIONS: The patient is a 27-year-old male with an abscess to the left forearm cellulitis. He understands risks and benefits of procedure and wished to proceed with procedure. Consent was signed in the chart. DESCRIPTION OF PROCEDURE: The patient was prepped and draped in sterile fashion. Timeout was performed. Local anesthetic was infiltrated over the area of fluctuance. A #11 blade scalpel was used to make a skin incision with area of fluctuance, 1.9 cm in length. Purulent material erupted, culture was obtained. The wound was irrigated with copious amounts of irrigation and all loculations were broken up. The wound was then packed with quarter inch iodoform gauze. The area was washed and dried and sterile bandage was applied. The patient tolerated the procedure well without any complications. Job ID: [id number] DocumentID: [id number] Dictated Date: 04/25/2018 16:08:04 Fisheries Specialist Date: 04/26/2018 02:31:03 Dictated By: SHARON LAO DO
[2018-04-26] MEDS: PIPERACILLIN/TAZO 4.5 GM/NS 100 ML IV SCH ×6 (05:06→22:12)
[2018-04-26] MEDS: fentaNYL INJECTION 100 MCG/2 ML AMP IVP PRN ×2 (05:09→13:39)
[2018-04-26 08:00] VITALS: BP 111/72
--- NOTE | 2018-04-26 09:09 | Progress Note-Hospitalist ---
Subjective HPI/CC On Admission Date Seen by Provider: Apr 26, 2018 Time Seen by Provider: 09:40 The patient is a 27-year-old white male who presented to the emergency room yesterday with complaints of pain and redness in his left upper arm. He reported that this had begun on the day prior. He denies any previous history of cellulitis. He has noted a vertically oriented scrape on his left arm about mid ulnar. There are also a couple of eschars on the knuckles of both hands. He believes that the arm is less tender and less red than yesterday. Subjective/Events-last exam Pt doing well. Dr. Lao has packed the wound. Wants to go home as soon as possible and appears to be disappointed and slightly rude when I told him the arm although improved is not ready for discharge. Constipation noted for several days so will initiate MiraLax. Partner at the bedside sleeping. 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 Review of Systems Musculoskeletal: arm pain Focused Exam Lactate Level Objective Exam Vital Signs Vital Signs Date Time Temp Pulse Resp B/P (MAP) Pulse Ox O2 Delivery O2 Flow Rate FiO2 04/26/18 16:00 97.8 57 20 127/65 (85) 98 Room Air Capillary Refill : Less Than 3 Seconds General Appearance: Mild Distress HEENT: Normal ENT Inspection Neck: Normal Inspection Respiratory: Chest Non Tender, Lungs Clear, Normal Breath Sounds, No Accessory Muscle Use, No Respiratory Distress Cardiovascular: Regular Rate, Rhythm, No Edema, No Gallop, No JVD, No Murmur, Normal Peripheral Pulses Gastrointestinal: Normal Bowel Sounds Back: Normal Inspection Extremity: Swelling (erythema left arm upper) Neurologic/Psychiatric: Alert, Oriented x3, No Motor/Sensory Deficits, Normal Mood/Affect Results/Procedures Lab Patient resulted labs reviewed. Assessment/Plan Assessment and Plan Assess & Plan/Chief Complaint Assessment: Left upper arm cellulitis with abscess now with packing and IV abx Constipation Plan: Ambulation IV abx Packing per surgery Bm regimen Diagnosis/Problems Diagnosis/Problems (1) Cellulitis of left upper extremity Status: Acute (2) Constipation Status: Acute Qualifiers: Constipation type: slow transit constipation Qualified Codes: K59.01 - Slow transit constipation Clinical Quality Measures DVT/VTE Risk/Contraindication: Risk Factor Score Per Nursin RFS Level Per Nursing on Admit: 1=Low/No VTE PPX RENAN ROSALES DO Apr 26, 2018 09:09
[2018-04-26] MEDS: VANCOMYCIN 1,750 MG/NS 500 ML IVPB IV SCH ×4 (09:25→20:03)
[2018-04-26] MEDS: diphenhydrAMINE 25 MG TAB (BENADRYL) PO PRN ×2 (09:28→20:03)
[2018-04-26] MEDS ORDERED: POLYETHYLENE GLYCOL 17 GM (MIRALAX) PACK PO NR (10:15)
[2018-04-26] MEDS ORDERED: POLYETHYLENE GLYCOL 17 GM (MIRALAX) PACK PO ONE (11:30)
--- NOTE | 2018-04-26 13:13 | Progress Note ---
Subjective Date Seen by a Provider: Apr 26, 2018 Time Seen by a Provider: 08:51 Subjective/Events-last exam patient arm still with pain. less erythema. less swelling. wound packed. denies any new complaints. Focused Exam Lactate Level 04/23/18 14:19: Lactic Acid Level 1.39 Objective Exam Vital Signs Date Time Temp Pulse Resp B/P (MAP) Pulse Ox O2 Delivery O2 Flow Rate FiO2 04/26/18 08:00 Room Air 04/26/18 08:00 97.9 53 18 111/72 (85) 98 Room Air 04/25/18 23:34 98.6 57 20 120/69 (86) 97 Room Air 04/25/18 20:00 Room Air 04/25/18 16:00 97.1 53 20 128/71 (90) 97 Room Air I & O 04/26/18 07:00 Intake Total 3587.5 ml Balance 3587.5 ml Capillary Refill : Less Than 3 Seconds General Appearance: No Apparent Distress HEENT: Normal ENT Inspection Neck: Normal Inspection Respiratory: Chest Non Tender, No Accessory Muscle Use, No Respiratory Distress Cardiovascular: Regular Rate, Rhythm, Normal Peripheral Pulses Gastrointestinal: non tender, soft, no organomegaly Extremity: Other (decreasing swelling and erythema, less indurated area left upper extremity) Neurologic/Psychiatric: Alert, Oriented x3, No Motor/Sensory Deficits, Normal Mood/Affect Skin: Warm/Dry (erythema improving left upper ext) Lymphatic: No Adenopathy Results Lab Laboratory Tests 04/25/18 14:57: Vancomycin Level Trough 24.6H 04/25/18 19:11: Vancomycin Level Trough 13.1 Microbiology 04/23/18 Blood Culture - Preliminary, Resulted No growth 04/25/18 Gram Stain - Final, Resulted 04/25/18 Anaerobic Culture, Resulted Pending 04/25/18 Wound Culture - Preliminary, Resulted No growth Assessment/Plan Assessment/Plan Assessment/Plan cellulitis/abscess left upper extremity. i and d performed getting purulent material and culture obtained continue medical management packing daily Clinical Quality Measures DVT/VTE Risk/Contraindication: Risk Factor Score Per Nursin RFS Level Per Nursing on Admit: 1=Low/No VTE PPX SHARON VEE DO Apr 26, 2018 13:13
[2018-04-26 16:00] VITALS: BP 127/65
[2018-04-26] MEDS ORDERED: POLYETHYLENE GLYCOL 17 GM (MIRALAX) PACK PO SCH ×2 (21:00)
[2018-04-27 00:05] VITALS: BP 117/75
[2018-04-27] MEDS: PIPERACILLIN/TAZO 4.5 GM/NS 100 ML IV SCH ×2 (05:19)
[2018-04-27] MEDS: HYDROcodone/APAP 5 MG/325 MG (LORTAB) TAB PO PRN (05:21)
[2018-04-27 08:00] VITALS: BP 119/56
[2018-04-27] MEDS: VANCOMYCIN 1,750 MG/NS 500 ML IVPB IV SCH ×2 (08:11)
[2018-04-27] MEDS ORDERED: ACHD5005 PO (09:28)
[2018-04-27] MEDS ORDERED: SULF1TAB35 PO (09:28)
--- NOTE | 2018-04-27 09:29 | Discharge Summary-Hospitalist ---
Diagnosis/Chief Complaint Date of Admission Apr 23, 2018 at 14:27 Date of Discharge Discharge Date: Apr 27, 2018 Admission Diagnosis Cellulitis Discharge Diagnosis (1) Cellulitis of left upper extremity Status: Acute (2) Constipation Status: Acute Discharge Summary Discharge Physical Exam Allergies: Coded Allergies: No Known Drug Allergies (Unverified , 04/23/18) Vitals & I&Os Vital Signs Date Time Temp Pulse Resp B/P (MAP) Pulse Ox O2 Delivery O2 Flow Rate FiO2 04/27/18 13:57 60 18 119/56 98 Room Air 04/27/18 08:00 97.5 General Appearance: No Apparent Distress, WD/WN Skin: Rash (nearly resolved left arm cellulitis erythema) Hospital Course Was the Problem List Reviewed?: Yes Hospital course: Pt had a lengthy hospital course due to sever left upper extremity cellulitis and abscess that required packing by Dr. Lao. He was placed on Zosyn and Vancomycin due to the severity. At time of discharge he had dramatic improvement in the erythema and drainage. He will have close follow-up with Dr. Lao maintained on Bactrim double strength twice daily for a full 10 more days. I did give a small amount of pain medication prescription at discharge. Labs (last 24 hrs) Microbiology 04/23/18 Blood Culture - Preliminary, Resulted No growth 04/25/18 Gram Stain - Final, Resulted 04/25/18 Anaerobic Culture - Preliminary, Resulted No anaerobes isolated 04/25/18 Wound Culture - Preliminary, Resulted No growth Patient resulted labs reviewed. Discussion & Recommendations Discharge Planning: <30 minutes discharge planning Discharge Home Medications: Active Scripts Active Bactrim Ds Tablet (Sulfamethoxazole/Trimethoprim) 1 Each Tablet 1 Each PO BID Hydrocodone/Acetaminophen 5/325mg Tablet (Acetaminophen/Hydrocodone Bitart) 1 Tab Tab 1-2 Tab PO Q6HR PRN Instructions to patient/family Please see electronic discharge instructions given to patient. Clinical Quality Measures DVT/VTE Risk/Contraindication: Risk Factor Score Per Nursin RFS Level Per Nursing on Admit: 1=Low/No VTE PPX Problem Qualifiers (1) Constipation: Constipation type: slow transit constipation Qualified Codes: K59.01 - Slow transit constipation RENAN ROSALES DO Apr 27, 2018 09:29
--- NOTE | 2018-04-27 09:53 | NUR ---
CM/SS spoke with the patient for discharge planning. Patient is to discharge this day and will have prescriptions. Patient states that he will not have any trouble picking up his prescriptions or affording them. Patient did not feel he would have any other discharge needs.
--- NOTE | 2018-04-27 12:34 | Progress Note ---
Subjective Date Seen by a Provider: Apr 27, 2018 Time Seen by a Provider: 07:42 Subjective/Events-last exam patient left arm improving. photographer still but better. less erythema, denies any other new complaints. Objective Exam Vital Signs Date Time Temp Pulse Resp B/P (MAP) Pulse Ox O2 Delivery O2 Flow Rate FiO2 04/27/18 08:00 97.5 60 18 119/56 (77) 98 Room Air 04/27/18 08:00 Room Air 04/27/18 00:05 97.3 60 18 117/75 (89) Nasal Cannula 04/26/18 20:00 Room Air 04/26/18 16:00 97.8 57 20 127/65 (85) 98 Room Air I & O 04/27/18 07:00 Intake Total 4040 ml Balance 4040 ml Capillary Refill : Less Than 3 Seconds General Appearance: No Apparent Distress HEENT: PERRL/EOMI, Normal ENT Inspection Neck: Normal Inspection Respiratory: Chest Non Tender, Lungs Clear, Normal Breath Sounds, No Accessory Muscle Use, No Respiratory Distress Cardiovascular: Regular Rate, Rhythm Gastrointestinal: non tender, soft, no organomegaly Extremity: Swelling (erythema left arm upper improving, skin opening from iand d small area of induration still lateral aspect) Neurologic/Psychiatric: Alert, Oriented x3, No Motor/Sensory Deficits, Normal Mood/Affect Skin: Warm/Dry (erythema improving left upper ext) Lymphatic: No Adenopathy Results Lab Microbiology 04/23/18 Blood Culture - Preliminary, Resulted No growth 04/25/18 Gram Stain - Final, Resulted 04/25/18 Anaerobic Culture - Preliminary, Resulted No anaerobes isolated 04/25/18 Wound Culture - Preliminary, Resulted No growth Assessment/Plan Assessment/Plan Assessment/Plan cellulitis/abscess left upper extremity. s/p i and d continuing with packing if dc i'll see in office tomorrow continue medical management packing daily indurated area may turn to abscess will monitor closely may need further intervention. Clinical Quality Measures DVT/VTE Risk/Contraindication: Risk Factor Score Per Nursin RFS Level Per Nursing on Admit: 1=Low/No VTE PPX SHARON VEE DO Apr 27, 2018 12:34
[2018-04-27 13:57] VITALS: BP 119/56
== END 2018-04-27 13:59 | disposition home or self-care (01) | DRG 603 ==
LOC: EDUNIT# 09:55 → ER 09:56 → 4TH 14:27
PROVIDERS: ADMIT Family Medicine; ATTEND Family Medicine
PROC: 0H9EXZZ Drainage of Left Lower Arm Skin, External Approach (ICD-10-PCS; principal; 2018-04-25)
DX: L02.414 Cutaneous abscess of left upper limb (principal); L03.114 Cellulitis of left upper limb; F17.210 Nicotine dependence, cigarettes, uncomplicated; S51.812A Laceration without foreign body of left forearm, initial encounter; X58.XXXA Exposure to other specified factors, initial encounter; R76.11 Nonspecific reaction to tuberculin skin test without active tuberculosis; K59.01 Slow transit constipation
CPT/HCPCS: 36415; 71045; 71275; 76881; 80053; 80202; 83605; 85007; 85025; 85027; 85379; 85610; 85730; 87040; 87070; 87075; 87205; 96374; 96376